=== PATIENT | female | born 1940 | race Caucasian/White ===

== ENCOUNTER 2018-02-14 11:32 | Emergency (ER) | payer OTHER ==
[2018-02-14 11:37] VITALS: BMI 24.9
--- NOTE | 2018-02-14 13:17 | DR.GENAD ---
HPI - PCP Primary Care Physician: ALTAGRACIA - HPI Comment HPI Comment: CVA IN OCTOBER, CONFUSION SINCE. FORGOT TO TAKE BP MED. INCREASING CONFUSION AND BP ELEVATED. PATIENT TOOK BP MED BEFORE COMING. NO FEVER OR DYSURIA. MEDS ARE ORGANIZE IN DAILY PORTION BY FAMILY. - Complaint/Symptoms Chief Complaint Doctors Comments: ELEVATED BP, CONFUSION. Chief Complaint:: PT FAMILY STATED THAT SHE HAD A CVA IN OCT. AND PT FAMILY STATED SHE FORGOT HER BLOOD PRESSURE MEDS YESTERDAY BUT TOOK IT LAST NIGHT. HER BLOOD PRESSURE HAD WENT UP BUT SHE IS NOT COMPLAINING OF ANYTHING AT THIS TIME. - Nurses notes reviewed Nurses Notes Review: Yes - Source History Provided: Patient - Mode of Arrival Mode of Arrival: Ambulatory - Timing Onset of Chief Complaint: 02/14/18 Came on: Suddenly - Duration Duration: Constant Duration: Days - Severity Severity: Moderate PMH - PMH Past Medical History: Yes Past Medical History: CVA, Hypertension, Hypothyroidism Past Surgical History: Yes Surgical History: Hysterectomy - Family History History of Family Medical Conditions: No - Social History Does patient currently use any type of tobacco product: No Have you used tobacco products in the last 12 months: No Type of Tobacco Use: None Does any household member use tobacco: No Alcohol Use: None Do you use any recreational Drugs:: No Lives With: Family Lives Where: Home - infectious screening In the last 2 months have you had wt loss of >10#?: NO Have you had fever, night sweats or hemotysis?: No Have you traveled outside the country in the last 6 months?: No Isolation: Standard ROS - Review of Systems Constitutional: Weakness, Fatigue. negative: Chills, Fever Eyes: negative: Eye Pain, Discharge ENTM: negative: Ear Pain, Nose Discharge, Nose Congestion, Throat Pain Respiratoy: Short of Breath (ON EXERSION.). negative: Productive Cough, Non- Productive Cough, Wheezing, Hemoptysis Cardiovascular: negative: Chest Pain Gastrointestinal/Abdominal: negative: Abdominal Pain, Nausea, Vomiting Genitourinary: negative: Dysuria, Hematuria Neurological: Headache, Weakness, Dizziness Musculoskeletal: Muscle Pain Integumentary: Change in Color Hematologic/Lymphatic: Easy Bleeding, Easy Bruising Endocrine: No Symptoms Reported All Other Systems: Reviewed and Negative PE - Vital Signs Vitals: Temperature 98.3 F Pulse Rate [Right Brachial] 54 Pulse Rate 60 Respiratory Rate 20 Blood Pressure [Right Arm] 158/78 Blood Pressure 185/88 O2 Sat by Pulse Oximetry 96 - General Limitations: Other (CONFUSE SLIGHTLY) General Appearance: Alert - Head Head Exam: Normal Inspection - Eyes Eye exam: PERRL. negative: Scleral Icterus - ENT ENT Exam: Normal External Ear Exam External Ear Exam: Normal External Inspection TM/Canal Exam: Bilateral Normal Nose Exam: Normal Nose Exam Mouth Exam: Normal Inspection Throat Exam: Normal Inspection - Neck Neck Exam: Trachea Midline - Respiratory Respiratory Exam: Normal Lung Sounds Bilat Respiratory Exam: Bilateral Rhonchi, Lower Rhonchi - Cardiovascular Cardiovascular Exam: Regular Rate, Normal Rhythm, Normal Heart Sounds - Abdominal Exam Abdominal Exam: Normal Bowel Sounds, Soft. negative: Tenderness - Back Back Exam: Normal Inspection - Neurologic Neurological Exam: Alert. negative: Oriented X3 (ORIENTED TO PLACE AND PERSON.) - Skin Skin Exam: Erythema MDM - Additional Information Additional Information Obtained From: Family (DAUGHTER IN ED WITH PATIENT.) - Differential Diagnosis Differential Diagnosis: CVA, UNCONTROL HYPERTENSION, CONFUSION Course - Treatment Treatment: SEE ORDERS. BP DECREASING WITH MEDS GIVEN IN ED. - Education/Counseling Education/Counseling: Patient, Family, Education Educated On: Diagnosis, Needs for Follow Up ROR - Labs Reviewed Laboratory Results Reviewed?: Yes Result Diagrams: 02/14/18 13:44 02/14/18 13:44 Laboratory: WBC 5.2 X10^3/uL (3.6-10.0) 02/14/18 13:44 RBC 4.78 X10^6/uL (3.5-5.4) 02/14/18 13:44 Hgb 15.1 g/dL (12.0-16.0) 02/14/18 13:44 Hct 42.8 % (36.0-47.0) 02/14/18 13:44 MCV 89.5 fL (80.0-100.0) 02/14/18 13:44 MCH 31.6 pg (27.0-34.0) 02/14/18 13:44 MCHC 35.3 g/dL (33.0-35.0) H 02/14/18 13:44 RDW 12.7 % (11.6-16.5) 02/14/18 13:44 Plt Count 205 X10^3/uL (150.0-450.0) 02/14/18 13:44 MPV 8.3 fL (7.4-11.0) 02/14/18 13:44 Neut % (Auto) 55.1 % (42.0-75.0) 02/14/18 13:44 Lymph % (Auto) 33.9 % (21.0-51.0) 02/14/18 13:44 [place] % (Auto) 8.8 % (0.0-13.0) 02/14/18 13:44 Eos % (Auto) 1.2 % (0.9-2.9) 02/14/18 13:44 Baso % (Auto) 1.0 % (0.2-1.0) 02/14/18 13:44 Neut # (Auto) 2.8 x10^3/uL (2.2-4.8) 02/14/18 13:44 Lymph # (Auto) 1.8 X10^3/uL (1.3-2.9) 02/14/18 13:44 [place] # (Auto) 0.5 x10^3/uL (0.3-0.8) 02/14/18 13:44 Eos # (Auto) 0.1 x10^3/uL (0.0-0.2) 02/14/18 13:44 Baso # (Auto) 0.1 X10^3/uL (0.0-0.1) 02/14/18 13:44 Absolute Nucleated RBC 0.1 /100WBC 02/14/18 13:44 Sodium 142 mmol/L (136-145) 02/14/18 13:44 Corrected Sodium TNP 02/14/18 13:44 Potassium 4.1 mmol/L (3.5-5.1) 02/14/18 13:44 Chloride 104 mmol/L (98-107) 02/14/18 13:44 Carbon Dioxide 32.8 mmol/L (21-32) H 02/14/18 13:44 BUN 14 mg/dL (7-18) 02/14/18 13:44 Creatinine 0.81 mg/dL (0.55-1.02) 02/14/18 13:44 Est GFR (MDRD) Af Amer > 60 (>60) 02/14/18 13:44 Est GFR (MDRD) Non-Af > 60 (>60) 02/14/18 13:44 Glucose 93 mg/dL (65-99) 02/14/18 13:44 Calcium 9.6 mg/dL (8.5-10.1) 02/14/18 13:44 Corrected Calcium TNP 02/14/18 13:44 Total Bilirubin 0.70 mg/dL (0.2-1.0) 02/14/18 13:44 AST 26 Units/L (15-37) 02/14/18 13:44 ALT 25 Units/L (12-78) 02/14/18 13:44 Alkaline Phosphatase 54 Units/L (46-116) 02/14/18 13:44 Creatine Kinase 70 Units/L (26-192) 02/14/18 13:44 CK-MB (CK-2) 1.8 ng/mL (0-4.0) 02/14/18 13:44 CK/CKMB % Calc 2.6 % (<4) 02/14/18 13:44 Troponin I < 0.02 ng/mL (0-1.5) 02/14/18 13:44 Total Protein 8.4 g/dL (6.4-8.2) H 02/14/18 13:44 Albumin 4.3 g/dL (3.4-5.0) 02/14/18 13:44 Globulin 4.1 g/dL (2.5-4.5) 02/14/18 13:44 Albumin/Globulin Ratio 1.0 Ratio (1.1-2.1) L 02/14/18 13:44 Specimen Type Clean catch urine 02/14/18 14:40 Urine Color Yellow (YELLOW) 02/14/18 14:40 Urine Appearance Clear (CLEAR) 02/14/18 14:40 Urine pH 7.0 (5.0 - 8.0) 02/14/18 14:40 Ur Specific [place] 1.015 (1.000-1.030) 02/14/18 14:40 Urine Protein Negative (NEGATIVE) 02/14/18 14:40 Urine Glucose (UA) Negative (NEGATIVE) 02/14/18 14:40 Urine Ketones Negative (NEGATIVE) 02/14/18 14:40 Urine Occult Blood 1+ (NEGATIVE) 02/14/18 14:40 Urine Nitrite Negative (NEGATIVE) 02/14/18 14:40 Urine Bilirubin Negative (NEGATIVE) 02/14/18 14:40 Urine Urobilinogen Normal (NORMAL) 02/14/18 14:40 Ur Leukocyte Esterase Negative (NEGATIVE) 02/14/18 14:40 Urine RBC None seen /HPF (NONE SEEN) 02/14/18 14:40 Urine WBC 0-2 /HPF (NONE SEEN) 02/14/18 14:40 Ur Squamous Epith Cells Rare /HPF (NEGATIVE) 02/14/18 14:40 Urine Bacteria Trace /HPF (NEGATIVE) 02/14/18 14:40 Ur Culture Indicated? No/not indicated 02/14/18 14:40 - XRAY XRAY Interpreted by: Radiologist XRAY Findings: REPORT DISCUSS WITH PATIENT AND FAMILY. - EKG Rhythm: NSR (EKG NOTED.) - Diagnosis Discharge Problem: Confusion HTN (hypertension) Qualifiers: Hypertension type: essential hypertension Qualified Code(s): I10 - Essential ( primary) hypertension - Discharge Plan Disposition: 01 HOME, SELF-CARE Condition: Stable - Follow ups/Referrals Follow ups/Referrals: SESAR FRIAS [Primary Care Provider] - 02/15/18 - Instructions Instructions: Confusion, Hypertension, Odga-aa-Yzys Additional Instructions: RETURN TO ED IF WORSE.
--- NOTE | 2018-02-14 13:46 | RAD ---
Exam: Portable chest History: 78-year-old female with possible CVA comparison: None Findings: Borderline cardiomegaly is present. No significant vascular congestion however. Mild atelec tasis may be present at the left base. Otherwise lungs are clear. Bony thorax is unremarkable. Impression: Borderline cardiomegaly with mild left basilar atelectasis. Reported By:
--- NOTE | 2018-02-14 13:50 | CT ---
HISTORY: Elevated blood pressure, history of CVA Study: CT head without contrast Comparison: None available Technique: Axial noncontrast images with coronal and sagittal reformats. Dose reduction procedures we re used with mA/kv adjusted for body size. Findings: The ventricles, cortical sulci, and other CSF spaces are enlarged consistent with some age-related at rophy. There is decreased attenuation in the periventricular white matter suggestive of small vessel vascular disease. There is an old left posterior frontal CVA present. There is no evidence for acute CVA, hemorrhage, mass lesion, or extra-axial fluid collection. If acute CVA or extension of the patie nt's old seed is is a clinical consideration MRI with diffusion imaging is recommended for further ev aluation. The visualized sinuses are clear. The calvarium is intact. 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
[2018-02-14] MEDS ORDERED: TUSSIONEX PENNKINETIC SUSP PO PRN (13:59)
[2018-02-14] MEDS ORDERED: NS 1/2 1000 ML IV 1,000 ML IV SCH (14:00)
[2018-02-14 14:09] LABS: BASOPHILS # (AUTO) 0.1 X10^3/uL (0.0-0.1); EOSINOPHILS # (AUTO) 0.1 x10^3/uL (0.0-0.2); EOSINOPHILS % (AUTO) 1.2 % (0.9-2.9); HEMATOCRIT 42.8 % (36.0-47.0); HEMOGLOBIN 15.1 g/dL (12.0-16.0); LYMPHOCYTES # (AUTO) 1.8 X10^3/uL (1.3-2.9); LYMPHOCYTES % (AUTO) 33.9 % (21.0-51.0); MEAN CORPUSCULAR HEMOGLOBIN 31.6 pg (27.0-34.0); MEAN CORPUSCULAR HGB CONC 35.3 g/dL (33.0-35.0); MEAN CORPUSCULAR VOLUME 89.5 fL (80.0-100.0); MEAN PLATELET VOLUME 8.3 fL (7.4-11.0); MONOCYTES # (AUTO) 0.5 x10^3/uL (0.3-0.8); MONOCYTES % (AUTO) 8.8 % (0.0-13.0); NEUTROPHILS # (AUTO) 2.8 x10^3/uL (2.2-4.8); NEUTROPHILS % (AUTO) 55.1 % (42.0-75.0); PLATELET COUNT 205 X10^3/uL (150.0-450.0); RED BLOOD COUNT 4.78 X10^6/uL (3.5-5.4); RED CELL DISTRIBUTION WIDTH 12.7 % (11.6-16.5); WHITE BLOOD COUNT 5.2 X10^3/uL (3.6-10.0)
[2018-02-14 14:16] VITALS: BP 158/78
[2018-02-14 14:17] LABS: BLOOD UREA NITROGEN 14 mg/dL (7-18); CALCIUM 9.6 mg/dL (8.5-10.1); CARBON DIOXIDE 32.8 mmol/L (21-32); CHLORIDE 104 mmol/L (98-107); CREATININE 0.81 mg/dL (0.55-1.02); SODIUM 142 mmol/L (136-145); TROPONIN I < 0.02 ng/mL (0-1.5); eGFR BLACK RACES > 60 (>60); eGFR NON BLACK RACES > 60 (>60)
[2018-02-14 14:21] LABS: ALANINE AMINOTRANSFERASE 25 Units/L (12-78); ALBUMIN 4.3 g/dL (3.4-5.0); ALKALINE PHOSPHATASE 54 Units/L (46-116); ASPARTATE AMINO TRANSFERASE 26 Units/L (15-37); CKMB % 2.6 % (<4); CREATINE KINASE 70 Units/L (26-192); CREATINE KINASE MB 1.8 ng/mL (0-4.0); TOTAL PROTEIN 8.4 g/dL (6.4-8.2)
[2018-02-14] MEDS ORDERED: NIFEDIPINE CAP 10 MG PO ONE (14:54)
[2018-02-14] MEDS ORDERED: NIFEDIPINE CAP 10 MG ONE (14:56)
[2018-02-14 14:57] LABS: BILIRUBIN,URINE NEGATIVE (NEGATIVE); BLOOD/HEMOGLOBIN,URINE 1+ (NEGATIVE); GLUCOSE, URINE NEGATIVE (NEGATIVE); KETONES,URINE NEGATIVE (NEGATIVE); LEUKOCYTE ESTERASE ,URINE NEGATIVE (NEGATIVE); NITRITES,URINE NEGATIVE (NEGATIVE); PROTEIN,URINE NEGATIVE (NEGATIVE); UROBILINOGEN,URINE NORMAL (NORMAL)
[2018-02-14 14:59] LABS: APPEARANCE,URINE CLEAR (CLEAR); COLOR,URINE YELLOW (YELLOW)
[2018-02-14 15:03] LABS: BACTERIA,URINE TRACE /HPF (NEGATIVE); RBC,URINE NONE SEEN /HPF (NONE SEEN); SQUAMOUS EPITHELIAL CELL,UR RARE /HPF (NEGATIVE)
[2018-02-14] MEDS ORDERED: ROBITUSSIN DM PO SCH (17:00)
[2018-02-14] MEDS ORDERED: VIBRAMYCIN 100 MG in NS 100 ML IV + SPIKE MINIBAG* 100 ML IV SCH (21:00)
[2018-02-15] MEDS ORDERED: ROCEPHIN 1 GM IV PREMIX 1 GM/50 ML IV.SOLN. IV SCH (09:00)
== END 2018-02-14 15:47 | disposition home or self-care (01) ==
LOC: ER 11:44
DX: R41.0 Disorientation, unspecified (principal); I10 Essential (primary) hypertension; R94.31 Abnormal electrocardiogram [ECG] [EKG]; Z86.73 Personal history of transient ischemic attack (TIA), and cerebral infarction without residual deficits; R51 Headache
CPT/HCPCS: 36415; 70450; 71045; 80053; 81001; 82550; 82553; 84484; 85025; 93005; 93010; 99283; 99285